=== PATIENT | male | born 1985 | race Caucasian/White ===

== ENCOUNTER 2023-07-09 22:51 | Emergency (ER) | payer OTHER ==
[2023-07-09] MEDS ORDERED: Ketorolac 30 MG/ML SDV IM ONE (23:33)
[2023-07-09 23:52] LABS: APPEARANCE,URINE CLEAR (CLEAR); BILIRUBIN,URINE NEGATIVE (NEGATIVE); COLOR,URINE YELLOW (YELLOW); GLUCOSE,URINE NEGATIVE (NEGATIVE); KETONES,URINE NEGATIVE (NEGATIVE); LEUKOCYTE ESTERASE,URINE NEGATIVE (NEGATIVE); NITRITE,URINE NEGATIVE (NEGATIVE); OCCULT BLOOD,URINE TRACE-INTACT (NEGATIVE); PH,URINE 6.5 (4.5-8.0); PROTEIN,URINE NEGATIVE (NEGATIVE); UROBILINOGEN,URINE 0.2 EU/dL (0.2-1.0)
[2023-07-09 23:57] LABS: BACTERIA,URINE NOT SEEN /HPF (NOT SEEN); RBC,URINE NOT SEEN /HPF (0-5); SQUAMOUS EPITHELIAL CELLS,UR NOT SEEN /HPF (NOT SEEN); WBC,URINE NOT SEEN /HPF (0-5)
== END 2023-07-10 00:13 | disposition home or self-care (01) ==
LOC: CC.ED 22:51
DX: M54.50 Low back pain, unspecified (principal); X50.0XXA Overexertion from strenuous movement or load, initial encounter
CPT/HCPCS: 72100; 81001; 93005; 96372; 99284; J1885

== ENCOUNTER 2024-02-06 13:40 | Emergency (ER) | payer MEDICAID ==
[2024-02-06] MEDS: Sodium Chloride 0.9% 1,000 ML IV SCH (13:53)
[2024-02-06] MEDS: Ondansetron 4 MG/2 ML SDV IVPUSH STA (13:57)
[2024-02-06 14:06] LABS: BASOPHILS ABSOLUTE AUTO 0.11 10^3/uL (0.00-0.50); BASOPHILS PERCENT AUTO 1.3 % (0-1); EOSINOPHILS ABSOLUTE AUTO 0.05 10^3/uL (0.00-1.50); EOSINOPHILS PERCENT AUTO 0.6 % (0-6); HEMATOCRIT 38.2 % (42.0-52.0); HEMOGLOBIN 13.3 g/dL (14.0-18.0); IMMATURE GRAN ABSOLUTE AUTO 0.04 10^3/uL (0.00-0.49); IMMATURE GRAN PERCENT AUTO 0.5 % (0.0-4.9); LYMPHOCYTES ABSOLUTE AUTO 2.76 10^3/uL (0.60-5.00); LYMPHOCYTES PERCENT AUTO 33.3 % (24-44); MEAN CORPUSCULAR HEMOGLOBIN 32.3 pg (27.0-32.0); MEAN CORPUSCULAR HGB CONC 34.8 g/dL (32.0-36.0); MEAN CORPUSCULAR VOLUME 92.7 fL (83.0-97.0); MONOCYTES ABSOLUTE AUTO 0.61 10^3/uL (0.00-1.50); MONOCYTES PERCENT AUTO 7.4 % (0-10); NEUTROPHILS ABSOLUTE AUTO 4.72 x10^3/uL (1.80-8.00); NEUTROPHILS PERCENT AUTO 56.9 % (41-71); PLATELET COUNT,PLT 257 10^3/uL (150-400); RED BLOOD CELL COUNT 4.12 x10^6/uL (4.50-6.00); WHITE BLOOD CELL COUNT,WBC 8.3 10^3/uL (4.0-11.0)
[2024-02-06 14:18] LABS: ALBUMIN 3.5 g/dL (3.4-5.0); BILIRUBIN TOTAL 0.6 mg/dL (0.0-1.0); CALCIUM 8.7 mg/dL (8.4-10.1); EST CRCL DRUG DOSING (CG) 95.44 mL/min; POTASSIUM,K 3.2 mEq/L (3.5-5.0); PROTEIN TOTAL,TP 7.2 g/dL (6.4-8.2)
[2024-02-06 14:56] LABS: APPEARANCE,URINE CLEAR (CLEAR); BILIRUBIN,URINE NEGATIVE (NEGATIVE); COLOR,URINE LIGHT YELLOW (YELLOW); GLUCOSE,URINE NEGATIVE (NEGATIVE); KETONES,URINE NEGATIVE (NEGATIVE); LEUKOCYTE ESTERASE,URINE NEGATIVE (NEGATIVE); NITRITE,URINE NEGATIVE (NEGATIVE); OCCULT BLOOD,URINE NEGATIVE (NEGATIVE); PROTEIN,URINE NEGATIVE (NEGATIVE); UROBILINOGEN,URINE 0.2 EU/dL (0.2-1.0)
[2024-02-06 14:58] LABS: AMPHETAMINES,URINE NEGATIVE (NEGATIVE); BARBITURATES,URINE NEGATIVE (NEGATIVE); BENZODIAZEPINE,URINE POSITIVE (NEGATIVE); MDMA (ECSTASY), URINE NEGATIVE (NEGATIVE); METHADONE,URINE NEGATIVE (NEGATIVE); METHAMPHETAMINES,URINE NEGATIVE (NEGATIVE); OPIATES,URINE NEGATIVE (NEGATIVE); OXYCODONE,URINE NEGATIVE (NEGATIVE); PHENCYCLIDINE,URINE NEGATIVE (NEGATIVE); TCA,URINE NEGATIVE (NEGATIVE)
[2024-02-06 14:59] LABS: C-REACTIVE PROTEIN < 0.50 mg/dL (<=0.50)
[2024-02-06] MEDS: Iopamidol 755 Mg/ML 100 ML Bottle IVPUSH ONE (15:02)
[2024-02-06] MEDS: Potassium Chloride 10 MEQ Tab.ER PO ONE (15:36)
[2024-02-06] MEDS: Take Home: Ondansetron 4 MG Tab.DIS, 2 Tab Pack PO ONE (16:12)
== END 2024-02-06 16:25 | disposition home or self-care (01) ==
LOC: CC.ED 13:40
DX: R11.2 Nausea with vomiting, unspecified (principal); J44.9 Chronic obstructive pulmonary disease, unspecified; F17.210 Nicotine dependence, cigarettes, uncomplicated; Z79.899 Other long term (current) drug therapy
CPT/HCPCS: 36415; 71045; 74177; 80053; 80305-QW; 81003; 83605; 84484; 85025; 85651; 86140; 86308; 87040; 93005; 96361; 96374; 99284-25; A9270-GY; J2405; J7030; Q9967

== ENCOUNTER 2024-02-12 14:02 | Emergency (ER) | payer MEDICAID ==
[2024-02-12 14:55] LABS: BASOPHILS ABSOLUTE AUTO 0.18 10^3/uL (0.00-0.50); BASOPHILS PERCENT AUTO 2.6 % (0-1); EOSINOPHILS ABSOLUTE AUTO 0.09 10^3/uL (0.00-1.50); EOSINOPHILS PERCENT AUTO 1.3 % (0-6); HEMATOCRIT 39.5 % (42.0-52.0); HEMOGLOBIN 13.4 g/dL (14.0-18.0); IMMATURE GRAN ABSOLUTE AUTO 0.02 10^3/uL (0.00-0.49); IMMATURE GRAN PERCENT AUTO 0.3 % (0.0-4.9); LYMPHOCYTES ABSOLUTE AUTO 1.74 10^3/uL (0.60-5.00); LYMPHOCYTES PERCENT AUTO 25.4 % (24-44); MEAN CORPUSCULAR HEMOGLOBIN 31.7 pg (27.0-32.0); MEAN CORPUSCULAR HGB CONC 33.9 g/dL (32.0-36.0); MEAN CORPUSCULAR VOLUME 93.4 fL (83.0-97.0); MONOCYTES PERCENT AUTO 7.3 % (0-10); NEUTROPHILS ABSOLUTE AUTO 4.31 x10^3/uL (1.80-8.00); NEUTROPHILS PERCENT AUTO 63.1 % (41-71); PLATELET COUNT,PLT 370 10^3/uL (150-400); RED BLOOD CELL COUNT 4.23 x10^6/uL (4.50-6.00); WHITE BLOOD CELL COUNT,WBC 6.8 10^3/uL (4.0-11.0)
[2024-02-12 15:00] LABS: APPEARANCE,URINE CLEAR (CLEAR); BILIRUBIN,URINE NEGATIVE (NEGATIVE); COLOR,URINE LIGHT YELLOW (YELLOW); GLUCOSE,URINE NEGATIVE (NEGATIVE); KETONES,URINE NEGATIVE (NEGATIVE); LEUKOCYTE ESTERASE,URINE NEGATIVE (NEGATIVE); NITRITE,URINE NEGATIVE (NEGATIVE); PROTEIN,URINE NEGATIVE (NEGATIVE); UROBILINOGEN,URINE 0.2 EU/dL (0.2-1.0)
[2024-02-12 15:07] LABS: OCCULT BLOOD,URINE NEGATIVE (NEGATIVE)
[2024-02-12 15:08] LABS: ALANINE AMINOTRANSFERASE,ALT 12 U/L (12-78); ALBUMIN 3.9 g/dL (3.4-5.0); ALKALINE PHOSPHATASE 105 U/L (46-116); ASPARTATE AMNIOTRANSFERASE,AST 20 U/L (15-37); BILIRUBIN TOTAL 0.7 mg/dL (0.0-1.0); BLOOD UREA NITROGEN,BUN 8 mg/dL (7-18); CALCIUM 9.6 mg/dL (8.4-10.1); CARBON DIOXIDE,CO2 25 mmol/L (21-32); CHLORIDE,CL 104 mEq/L (98-106); CREATININE 0.9 mg/dL (0.7-1.3); EST CRCL DRUG DOSING (CG) 113.78 mL/min; GLUCOSE RANDOM 137 mg/dL (75-99); POTASSIUM,K 3.7 mEq/L (3.5-5.0); PROTEIN TOTAL,TP 7.7 g/dL (6.4-8.2); SODIUM,NA 141 mEq/L (136-145)
[2024-02-12 15:08] LABS: AMPHETAMINES,URINE NEGATIVE (NEGATIVE); BARBITURATES,URINE NEGATIVE (NEGATIVE); BENZODIAZEPINE,URINE POSITIVE (NEGATIVE); MDMA (ECSTASY), URINE NEGATIVE (NEGATIVE); METHADONE,URINE NEGATIVE (NEGATIVE); METHAMPHETAMINES,URINE NEGATIVE (NEGATIVE); OPIATES,URINE NEGATIVE (NEGATIVE); OXYCODONE,URINE NEGATIVE (NEGATIVE); PHENCYCLIDINE,URINE NEGATIVE (NEGATIVE); TCA,URINE NEGATIVE (NEGATIVE)
[2024-02-12 15:10] LABS: C-REACTIVE PROTEIN < 0.50 mg/dL (<=0.50); ESTIMATED GFR 111 mL/min (>=60)
[2024-02-12 15:29] LABS: STREP A BY PCR NOT DETECTED (NOT DETECT)
[2024-02-12 15:31] LABS: CORONAVIRUS COVID-19 NAA NEGATIVE (NEGATIVE); INFLUENZA A NAA NEGATIVE (NEGATIVE); INFLUENZA B NAA NEGATIVE (NEGATIVE)
== END 2024-02-12 16:00 | disposition home or self-care (01) ==
LOC: CC.ED 14:02
DX: B34.9 Viral infection, unspecified (principal); J44.9 Chronic obstructive pulmonary disease, unspecified; Z79.899 Other long term (current) drug therapy
CPT/HCPCS: 0240U; 36415; 71046; 80053; 80305-QW; 81003; 84484; 85025; 86140; 87651-QW; 93005; 99285